=== PATIENT | female | born 1975 | race African-American/Black ===

== ENCOUNTER → 2016-11-25 | Outpatient (REF) | payer OTHER | LOC: M SFHCLERA 13:43 | PROVIDERS: ATTEND Physician Assistant | DX: N89.8 Other specified noninflammatory disorders of vagina (principal) ==

== ENCOUNTER → 2017-06-09 | Outpatient (CLI) | payer OTHER ==
--- NOTE | 2017-06-09 15:33 | REPMRS ---
Patient History The patient states she had a clinical breast exam in 2015. Patient has history of breast cancer at age 32. No known family history of cancer. Digital Mammo Screening Bilat: June 09, 2017 - Exam #: [id number] Bilateral CC and MLO view(s) were taken. Technologist: Marley Arredondo, Technologist Prior study comparison: April 16, 2016, bilateral digital mammo screening bilat performed at [facility]. March 01, 2015, bilateral digital mammo screening bilat performed at [facility]. FINDINGS: The breast tissue is heterogeneously dense. This may lower the sensitivity of mammography. There is no evidence of cancer on this mammogram. No significant changes when compared with prior studies. ASSESSMENT: BI-RADS/ACR category 2 mammogram. Benign finding(s). Recommendation Routine screening mammogram of both breasts in 1 year (for women over age 40). This mammogram was interpreted with the aid of an FDA-approved computer-aided dectection system. Electronically Signed By: Duong Moran MD 06/09/17 3031
== END ==
LOC: M RAD 13:42
PROVIDERS: ATTEND Nurse Practitioner Family
DX: Z12.31 Encounter for screening mammogram for malignant neoplasm of breast (principal)